=== PATIENT | female | born 1995 | race Caucasian/White ===

== ENCOUNTER 2022-02-19 13:28 | Outpatient (CLI) | payer BC | END 2022-02-19 13:29 | disposition home or self-care (01) | LOC: BICMRI 13:28 | PROVIDERS: ATTEND Surgery | DX: Z15.01 Genetic susceptibility to malignant neoplasm of breast (principal) | CPT/HCPCS: A9577; C8908 ==

== ENCOUNTER 2022-07-12 16:34 | Outpatient (CLI) | payer BC | END 2022-07-12 16:35 | disposition home or self-care (01) | LOC: SCSRAD 16:34 | PROVIDERS: ATTEND Nurse Practitioner Family | DX: R05.3 Chronic cough (principal) | CPT/HCPCS: 71046 ==

== ENCOUNTER 2022-11-30 08:46 | Outpatient (CLI) | payer BC | END 2022-11-30 08:47 | disposition home or self-care (01) | LOC: BICULT 08:46 | DX: Z15.01 Genetic susceptibility to malignant neoplasm of breast (principal); Z80.3 Family history of malignant neoplasm of breast ==

== ENCOUNTER 2023-12-09 14:30 | Outpatient (CLI) | payer BC | END 2023-12-09 14:31 | disposition home or self-care (01) | LOC: BICRAD 14:30 | PROVIDERS: ATTEND Family Medicine | DX: R30.0 Dysuria (principal) | CPT/HCPCS: 74018 ==